=== PATIENT | female | born 1965 | race Two or more races ===

== ENCOUNTER 2018-12-30 08:34 | Emergency (ER) | payer OTHER ==
[~2018-12-30] VITALS: Ht 170.2 cm; Wt 60.3 kg
[2018-12-30] MEDS ORDERED: SYNTHROID50 MCG (08:42)
== END 2018-12-30 15:49 | disposition home or self-care (01) ==
LOC: ER 08:34
DX: S93.492A Sprain of other ligament of left ankle, initial encounter (principal); W01.198A Fall on same level from slipping, tripping and stumbling with subsequent striking against other object, initial encounter; Y93.01 Activity, walking, marching and hiking; Y92.89 Other specified places as the place of occurrence of the external cause; Y99.8 Other external cause status